=== PATIENT | female | born 1980 | race Caucasian/White ===

== ENCOUNTER → 2017-05-01 | Outpatient (CLI) | payer OTHER ==
[~2017-05-01] MED LIST: PRENTAB26
== END | disposition home or self-care (01) ==
LOC: C.PAPS 16:02
PROVIDERS: ATTEND Physician Assistant
DX: Z12.4 Encounter for screening for malignant neoplasm of cervix (principal)

== ENCOUNTER → 2017-05-08 | Outpatient (CLI) | payer OTHER ==
--- NOTE | 2017-05-08 14:43 | MAMMOGRAPHY REPORT ---
BILATERAL DIGITAL DIAGNOSTIC MAMMOGRAM TOMOSYNTHESIS WITH CAD AND TARGETED LEFT ULTRASOUND: 05/08/2017 CLINICAL HISTORY: The patient reports an episode of left breast tenderness which lasted approximately 2.5-3 weeks. She reports that the pain is now resolved. She denies a clear associated palpable lum p, nipple discharge, or skin erythema. TECHNIQUE: Breast tomosynthesis in addition to standard 2D mammography was performed. Current study was also evaluated with a Computer Aided Detection (CAD) system. Bilateral CC and MLO 2-D and tomosy nthesis images were obtained. COMPARISON: Comparison is made to exams dated: 02/22/2014 ultrasound and 02/22/2014 mammogram - [facility]. BREAST COMPOSITION: The tissue of both breasts is extremely dense, which lowers the sensitivity of m ammography. FINDINGS: A square marker merida the site of the pain pointed out by the patient in the left inferior breast. There are no suspicious masses, calcifications, or areas of architectural distortion noted in either breast mammographically. There has been no significant interval change compared to the zi or exam. Targeted ultrasound was performed of the area of prior pain pointed out by the patient. She could no t pinpoint the exact location of the pain given that it is now resolved, however, pointed to the left inferior breast involving the left lower outer and lower inner quadrants. No suspicious masses or o ther suspicious sonographic abnormalities are evident in this region. IMPRESSION: ACR BI-RADS CATEGORY 1: NEGATIVE, TARGETED ULTRASOUND ACR BI-RADS CATEGORY 1: NEGATIVE No suspicious mammographic or sonographic abnormality to explain left breast pain, which is now resol pb. There is no mammographic or targeted sonographic evidence of malignancy. Recommend clinical fo llow-up for left breast pain, and recommend routine bilateral screening mammograms starting at the ag e of 40 unless otherwise clinically indicated. The patient has been verbally notified of the results. Approximately 10% of breast cancers are not detected with mammography. A negative mammographic report should not delay biopsy if a clinically suggestive mass is present. Evelia Meraz M.D. /:05/08/2017 09:38:16 [employer]ologist: Paula Law, [facility] letter sent: Normal 1/2 BI-RADS Code: ACR BI-RADS Category 1: Negative Ultrasound BI-RADS: ACR BI-RADS Category 1: Negative
== END | disposition home or self-care (01) ==
LOC: C.MAMM 09:11
PROVIDERS: ATTEND Physician Assistant
DX: N64.4 Mastodynia (principal)

== ENCOUNTER → 2018-01-29 | Outpatient (CLI) | payer OTHER | END | disposition home or self-care (01) | LOC: C.LAB1850 11:34 | PROVIDERS: ATTEND Internal Medicine | DX: Z13.1 Encounter for screening for diabetes mellitus (principal); Z13.220 Encounter for screening for lipoid disorders; Z13.29 Encounter for screening for other suspected endocrine disorder ==